=== PATIENT | male | born 1940 | race Caucasian/White ===

== ENCOUNTER 2023-03-23 16:26 | Emergency (ER) | payer MEDICARE, BC ==
[~2023-03-23] VITALS: Ht 185.4 cm; Wt 117.5 kg
[~2023-03-23 16:26] MED LIST: CAR2T PO; DABI150C PO; DET2LAC PO; DILT180C54 PO; NITR0.4T48 SL; PRIMADONE PO; ROSU20TA2 PO; [UNRECOGNIZED DRUG - OTHER] PO
[2023-03-23 17:21] LABS: BASOPHILS # (AUTO) 0.1 X10'3 (0-0.2); EOSINOPHILS # (AUTO) 0.3 X10'3 (0-0.9); EOSINOPHILS % (AUTO) 4.5 % (0-6); HEMATOCRIT 49.3 % (42.0-52.0); HEMOGLOBIN 16.6 g/dl (14.0-17.9); LYMPHOCYTES # (AUTO) 1.5 X10'3 (1.1-4.8); LYMPHOCYTES % (AUTO) 20.4 % (21-51); MEAN CORPUSCULAR HEMOGLOBIN 31.5 PG (27.0-31.0); MEAN CORPUSCULAR HGB CONC 33.5 g/dL (33.0-36.5); MEAN CORPUSCULAR VOLUME 93.9 FL (78-98); MEAN PLATELET VOLUME 7.6 FL (7.4-10.4); MONOCYTES # (AUTO) 0.7 X10'3 (0-0.9); MONOCYTES % (AUTO) 10.2 % (2-12); NEUTROPHILS # (AUTO) 4.5 X10'3 (1.8-7.7); NEUTROPHILS % (AUTO) 63.9 % (42-75); PLATELET COUNT 259 X10'3 (140-440); RED BLOOD COUNT 5.26 X10'6 (4.70-6.10); RED CELL DISTRIBUTION WIDTH 13.8 % (11.5-14.5); WHITE BLOOD COUNT 7.1 X10'3 (4.5-11.0)
[2023-03-23 17:33] LABS: APTT 36 SECONDS (22-32); INR 1.1 INR; PROTHROMBIN TIME 11.7 SECONDS (9.0-12.0)
[2023-03-23 17:35] LABS: ALANINE AMINOTRANSFERASE 10 U/L (12-78); ALKALINE PHOSPHATASE 119 IU/L (46-116); ANION GAP 7 (8-16); ASPARTATE AMINO TRANSFERASE 21 U/L (10-37); BILIRUBIN,TOTAL 0.5 MG/DL (0.1-1.0); BLOOD UREA NITROGEN 27 MG/DL (7-18); BUN/CREATININE RATIO 22.1 (10.0-20.0); CALCIUM 9.8 MG/DL (8.5-10.1); CHLORIDE 98 MMOL/L (99-107); CREATININE 1.22 MG/DL (0.60-1.10); GLUCOSE 82 MG/DL (70-104); POTASSIUM 3.7 MMOL/L (3.5-5.1); SODIUM 137 MMOL/L (135-145); TOTAL CARBON DIOXIDE 31.7 MMOL/L (24-32); TOTAL PROTEIN 8.1 G/DL (6.4-8.2); eCRCL 54 ML/MIN; eGFR 57 ML/MIN
[2023-03-23] MEDS ORDERED: iohexol 300mg/ml 100ml inj. ONE (18:59)
--- NOTE | 2023-03-23 20:06 | NUR ---
pt is resting quietly on bed, no complaints,
--- NOTE | 2023-03-23 20:10 | NUR ---
DR EL AT BEDSIDE FOR RECTAL EXAMINE, HEMOCULT IS POSITIVE
[2023-03-23] MEDS ORDERED: ESOM40CA PO (20:38)
[2023-03-23 20:55] VITALS: BP 155/95; PULSE 87; RESP 16; TEMP 98.2; O2SAT 98
[2023-03-24 09:15] LABS: OCCULT BLOOD STOOL POSITIVE (Neg)
== END 2023-03-23 20:57 | disposition home or self-care (01) ==
LOC: ER 16:27
DX: K57.90 Diverticulosis of intestine, part unspecified, without perforation or abscess without bleeding (principal); K62.5 Hemorrhage of anus and rectum; I10 Essential (primary) hypertension; Z79.899 Other long term (current) drug therapy
CPT/HCPCS: 36415; 74177; 80053; 82272; 84484; 85025; 85610; 85730; 99285; J3490; Q9967